=== PATIENT | female | born 1985 | race Caucasian/White ===

== ENCOUNTER 2018-05-27 15:12 | Emergency (ER) | payer OTHER ==
[~2018-05-27] VITALS: Ht 149.9 cm; Wt 63.5 kg
[~2018-05-27 15:12] MED LIST: ATIVAN1 MG PO; CLEOCIN HCL300 MG PO; DEPAKOTE ER500 MG; KEPPRA 500 MG500 M1 PO; LAMICTAL; LAMICTAL XR100 MG PO; LORTABELXR PO; NOHOMEMEDICATIONS; PERCOCET 5-3251 EACH PO; SEIZURE; [UNRECOGNIZED DRUG - OTHER]
[2018-05-27] MEDS ORDERED: ZONISAMIDE 100100 M1 PO (15:20)
[2018-05-27 15:31] VITALS: BP 110/79
== END 2018-05-27 15:33 | disposition home or self-care (01) ==
LOC: M.ERS 15:12
DX: G40.909 Epilepsy, unspecified, not intractable, without status epilepticus (principal); Z98.890 Other specified postprocedural states